=== PATIENT | male | born 1960 | race Caucasian/White ===

== ENCOUNTER 2020-04-07 12:48 | Emergency (ER) | payer OTHER, SELFPAY ==
[2020-04-07 12:55] VITALS: BP 102/68; PULSE 72; RESP 14; TEMP 36.7; O2SAT 100; BMI 25.8
--- NOTE | 2020-04-07 13:23 | DI.US.S_ITS ---
PROCEDURE: US PERIPH VENOUS UP EXTREM LT INDICATIONS: redness, swelling, hx ca TECHNIQUE: Real-time imaging, as well as color and pulse Doppler interrogation, was performed of the left upper extremity deep veins from the inferior neck to the antecubital fossa. COMPARISON: None. FINDINGS: The internal jugular vein, visualized portions of the subclavian vein, axillary, and brachial veins are free of intraluminal thrombus. Where physically possible, the veins are normally compressible. Color and pulse Doppler demonstrate normal intraluminal flow, with expected phasicity and pulsatility. Additional scanning of the cephalic and basilic veins of the superficial system demonstrate normal compressibility, without thrombus. IMPRESSION: No evidence of left upper extremity deep vein thrombosis. Dictated by: Zachariah Benjamin M.D. on 04/07/2020 at 13:14 Approved by: Zachariah Benjamin M.D. on 04/07/2020 at 13:14
--- NOTE | 2020-04-07 13:45 | ED.EXTPRO ---
HPI - Extremity Problem <NICK Vinson - Last Filed: 04/07/20 20:09> General Chief complaint: Extremity Problem,Nontraumatic Stated complaint: left arm swollen Time Seen by Provider: 04/07/20 13:10 Source: patient Mode of arrival: Ambulatory Limitations: no limitations History of Present Illness HPI Narrative: The patient is a 59-year-old male former smoker with history of breast cancer who presents with a chief complaint of a swollen left arm. He states it has been swollen for the past several weeks after he lifted weights to heavy at the gym. He has history of lymph node removal on his left side after his breast cancer course. He noticed a few days ago that there was redness extending up his left arm. He states he thinks that is related to the lymph node removal in the fact that he worked too hard at the gym, but wants to make sure it is not related to infection or a blood clot. He denies any fevers nausea vomiting or diarrhea. Denies any chest pain or shortness of breath. He has not taken anything to feel better. Related Data Previous Rx's Medication Instructions Recorded cyclobenzaprine 10 mg PO TID PRN #14 tab 04/07/20 ketorolac 10 mg PO TID PRN #15 tab 04/07/20 Allergies Allergy/AdvReac Type Severity Reaction Status Date / Time No Known Drug Allergies Allergy Verified 04/07/20 13:01 Review of Systems <NICK Vinson - Last Filed: 04/07/20 20:09> Review of Systems Narrative: GENERAL: Denies chills, fatigue, malaise, fever, sweats. HEENT: Denies sinus pain, ear pain, sore throat, difficulty swallowing, dizziness. RESPIRATORY: Denies dyspnea, cough, wheezing, hemoptysis, sputum. CARDIOVASCULAR: Denies chest pain, palpitations, orthopnea, edema, GASTROINTESTINAL: Denies nausea, vomiting, abdominal pain, diarrhea, constipation, melena. : Denies dysuria, frequency, incontinence, hematuria, urinary retention. MUSCULOSKELETAL: See HPI SKIN: See HPI NEUROLOGIC: Denies weakness, headache, numbness, change in speech, confusion, seizures, incoordination. PSYCHIATRIC: No concerning psychosocial issues. 12 point review of systems is negative except for those stated above Patient History <NICK Vinson - Last Filed: 04/07/20 20:09> Social History Smoking Status: Unknown if ever smoked Smoking Status: Unknown if ever smoked alcohol intake frequency: holidays/special occasions only Substance Use Type: does not use Exam <Zayra Nathalie [employer] - Last Filed: 04/07/20 20:09> Narrative Exam Narrative: GENERAL: This is a well-nourished, well-developed patient, in no acute distress HEAD: Atraumatic. Normocephalic. No temporal or scalp tenderness. EYES: Pupils equal round and reactive. Extraocular motions intact. No scleral icterus. No injection or drainage. ENT: Nose without bleeding, purulent drainage or septal hematoma. Throat without erythema, tonsillar hypertrophy or exudate. Uvula midline. Airway patent. NECK: Trachea midline. No JVD or lymphadenopathy. Supple, nontender, no meningeal signs. CARDIOVASCULAR: Regular rate and rhythm RESPIRATORY: Clear to auscultation. Breath sounds equal bilaterally. No wheezes, rales, or rhonchi. No cough. No increased respiratory effort. GASTROINTESTINAL: Abdomen soft, non-tender, nondistended. No hepato-splenomegaly, or palpable masses. No guarding. EXTREMITIES: Edema noted left upper arm. Able to fully flex and extend left wrist and elbow. Positive left radial pulse. Skin exam as noted. Slight pain to palpation left bicep before pain medications. Arm is soft throughout. Capillary refill less than 2 seconds all fingers left hand. BACK: Nontender without deformity or crepitance. No flank tenderness. NEURO: AOx3. SKIN: Diffuse, nonspecific erythema noted on left upper arm. Postoperative scars, well healed left pack. Initial Vital Signs Initial Vital Signs: Vital Signs Temperature 98.0 F 04/07/20 12:55 Pulse Rate 72 04/07/20 12:55 Respiratory Rate 04/07/20 12:55 Blood Pressure 102/68 04/07/20 12:55 Pulse Oximetry 100 04/07/20 12:55 <Ari Lopez MD - Last Filed: 04/08/20 07:57> Initial Vital Signs Initial Vital Signs: Vital Signs Temperature 98.0 F 04/07/20 12:55 Pulse Rate 72 04/07/20 12:55 Respiratory Rate 14 04/07/20 12:55 Blood Pressure 102/68 04/07/20 12:55 Pulse Oximetry 100 04/07/20 12:55 Scores <ROBYN Vinson - Last Filed: 04/07/20 20:09> GCS [place] coma scale eye opening: Spontaneous Oneil coma scale verbal response: Orientated Oneil coma scale motor response: Obey commands Oneil coma scale total score: 15 Course <ROBYN Vinson - Last Filed: 04/07/20 20:09> Orders Ordered: Discontinued Medications Ketorolac Tromethamine (Toradol) 60 mg IM NOW ONE Stop: 04/07/20 14:53 Last Admin: 04/07/20 15:13 Dose: 60 mg Documented by: KELY Vital Signs Vital signs: Vital Signs - 8 hr 04/07/20 12:55 04/07/20 16:37 Temperature 98.0 F Pulse Rate 72 Respiratory Rate 14 Blood Pressure 102/68 104/80 Pulse Oximetry 100 <Ari Lopez MD - Last Filed: 04/08/20 07:57> Orders Ordered: Discontinued Medications Ketorolac Tromethamine (Toradol) 60 mg IM NOW ONE Stop: 04/07/20 14:53 Last Admin: 04/07/20 15:13 Dose: 60 mg Documented by: KELY Vital Signs Vital signs: Vital Signs - 8 hr 04/07/20 12:55 04/07/20 16:37 Temperature 98.0 F Pulse Rate 72 Respiratory Rate 14 Blood Pressure 102/68 104/80 Pulse Oximetry 100 MDM - Extremity (Nontraumatic) <ROBYN Vinson - Last Filed: 04/07/20 20:09> Lab Data Attestation: I reviewed the patient's lab results. Result diagrams: 04/07/20 14:02 04/07/20 14:02 Labs: Lab Results 04/07/20 04/07/20 04/07/20 Range/Units 14:02 14:02 14:02 WBC 10.2 (4.5-11.0) X10^3/uL RBC 3.84 L (4.5-5.9) X10^6/uL Hgb 11.9 L (13.5-17.5) g/dL Hct 34.6 L (41-53) % MCV 89.9 (80-100) fL MCH 31.0 (26-34) PG MCHC 34.5 (30-36) % RDW 13.2 (11.6-14.8) % Plt Count 197 (150-400) X10^3/uL Neut % (Auto) 83.1 H (50-75) % Lymph % (Auto) 9.4 L (25-40) % [place] % (Auto) 5.5 (3-14) % Eos % (Auto) 1.8 L (2-4) % Baso % (Auto) 0.2 (0-2) % Neut # (Auto) 8500 H (4522-4470) /uL Lymph # (Auto) 1000 L (9952-0155) /uL [place] # (Auto) 600 (0-900) /uL Eos # (Auto) 200 (0-450) /uL Baso # (Auto) 0 (0-100) /uL PT (10.1-12.7) SECONDS INR (0.9-1.3) APTT (26.4-36.2) SECONDS Sodium 139 (137-145) mmol/L Potassium 3.5 (3.4-5.1) mmol/L Chloride 103 (98-107) mmol/L Carbon Dioxide 30 (22-32) mmol/L BUN 14 (9-20) mg/dL Creatinine 0.86 (0.66-1.25) mg/dL Estimated GFR > 60.0 (>60) mL/min BUN/Creatinine Ratio 16.3 (6-22) Glucose 94 (70-100) mg/dL Calcium 9.0 (8.4-10.2) mg/dL Magnesium (1.6-2.3) mg/dL Total Bilirubin 0.8 (0.2-1.3) mg/dL AST 32 (17-59) IU/L ALT 22 (<50) IU/L Alkaline Phosphatase 45 (38-126) U/L Total Creatine Kinase 210 H (55-170) U/L Total Protein 7.3 (6.3-8.2) g/dL Albumin 4.2 (3.5-5.0) g/dL Globulin 3.1 (1.7-4.1) g/dL Albumin/Globulin Ratio 1.4 (1.0-2.8) Procalcitonin 0.05 (<0.5) ng/mL 04/07/20 04/07/20 Range/Units 14:02 14:02 WBC (4.5-11.0) X10^3/uL RBC (4.5-5.9) X10^6/uL Hgb (13.5-17.5) g/dL Hct (41-53) % MCV (80-100) fL MCH (26-34) PG MCHC (30-36) % RDW (11.6-14.8) % Plt Count (150-400) X10^3/uL Neut % (Auto) (50-75) % Lymph % (Auto) (25-40) % [place] % (Auto) (3-14) % Eos % (Auto) (2-4) % Baso % (Auto) (0-2) % Neut # (Auto) (2697-7256) /uL Lymph # (Auto) (4535-8647) /uL [place] # (Auto) (0-900) /uL Eos # (Auto) (0-450) /uL Baso # (Auto) (0-100) /uL PT 13.8 H (10.1-12.7) SECONDS INR 1.2 (0.9-1.3) APTT 31 (26.4-36.2) SECONDS Sodium (137-145) mmol/L Potassium (3.4-5.1) mmol/L Chloride (98-107) mmol/L Carbon Dioxide (22-32) mmol/L BUN (9-20) mg/dL Creatinine (0.66-1.25) mg/dL Estimated GFR (>60) mL/min BUN/Creatinine Ratio (6-22) Glucose (70-100) mg/dL Calcium (8.4-10.2) mg/dL Magnesium 2.0 (1.6-2.3) mg/dL Total Bilirubin (0.2-1.3) mg/dL AST (17-59) IU/L ALT (<50) IU/L Alkaline Phosphatase (38-126) U/L Total Creatine Kinase (55-170) U/L Total Protein (6.3-8.2) g/dL Albumin (3.5-5.0) g/dL Globulin (1.7-4.1) g/dL Albumin/Globulin Ratio (1.0-2.8) Procalcitonin (<0.5) ng/mL Imaging Data US - DVT: Radiologist's Impression: [facility] [place] [id number] Ultrasound Report Signed Patient: Deny Andino HMR#: [id number] : 1Acct:[id number] Age/Sex: 59 / MDate of Service: 04/07/20 Loc: ED Accession Number: [id number] Procedure: US periph venous up extrem lt Ordering Provider: Zayra Zelaya [employer] PROCEDURE: US PERIPH VENOUS UP EXTREM LT INDICATIONS: redness, swelling, hx ca TECHNIQUE: Real-time imaging, as well as color and pulse Doppler interrogation, was performed of the left upper extremity deep veins from the inferior neck to the antecubital fossa. COMPARISON: None. FINDINGS: The internal jugular vein, visualized portions of the subclavian vein, axillary, and brachial veins are free of intraluminal thrombus. Where physically possible, the veins are normally compressible. Color and pulse Doppler demonstrate normal intraluminal flow, with expected phasicity and pulsatility. Additional scanning of the cephalic and basilic veins of the superficial system demonstrate normal compressibility, without thrombus. IMPRESSION: No evidence of left upper extremity deep vein thrombosis. Dictated by: Zachariah Benjamin M.D. on 04/07/2020 at 13:14 Approved by: Zachariah Benjamin M.D. on 04/07/2020 at 13:14 [facility] Narrative Medical decision making narrative: The patient is a 51-year-old male who presents with a chief complaint of left arm swelling. His picture is complicated by the fact that he has had a mastectomy and lymph node removal. Given his swelling, DVT ultrasound was taken to help rule out DVT. This came back negative. Lab work was taken to find no leukocytosis, negative procalcitonin or indications of infection. The patient's exam indicates a soft arm, with slight edema that improved throughout his stay in the emergency department. Compartment syndrome was consider, though the patient has good pulses, good capillary refill, and his arm is soft to palpation. This edema that he has likely due to lymphedema, which has recovered with some rest in the emergency department. I encouraged rest ice compression elevation. The patient felt much improved with a single injection of Toradol, so I did give him a prescription with specific instructions to not take it with Aleve or any other NSAIDs. Also offered prescription of Flexeril, but was unable to try that prior to patient discharge as the patient was driving home. Discussed at length coming back to the emergency department for any acute concerns, follow-up with primary care provider. Patient has no questions or concerns upon discharge and states understanding of return precautions as well as follow-up care. <Ari Lopez MD - Last Filed: 04/08/20 07:57> Lab Data Labs: Lab Results 04/07/20 04/07/20 04/07/20 Range/Units 14:02 14:02 14:02 WBC 10.2 (4.5-11.0) X10^3/uL RBC 3.84 L (4.5-5.9) X10^6/uL Hgb 11.9 L (13.5-17.5) g/dL Hct 34.6 L (41-53) % MCV 89.9 (80-100) fL MCH 31.0 (26-34) PG MCHC 34.5 (30-36) % RDW 13.2 (11.6-14.8) % Plt Count 197 (150-400) X10^3/uL Neut % (Auto) 83.1 H (50-75) % Lymph % (Auto) 9.4 L (25-40) % [place] % (Auto) 5.5 (3-14) % Eos % (Auto) 1.8 L (2-4) % Baso % (Auto) 0.2 (0-2) % Neut # (Auto) 8500 H (1971-8562) /uL Lymph # (Auto) 1000 L (4371-6403) /uL [place] # (Auto) 600 (0-900) /uL Eos # (Auto) 200 (0-450) /uL Baso # (Auto) 0 (0-100) /uL PT (10.1-12.7) SECONDS INR (0.9-1.3) APTT (26.4-36.2) SECONDS Sodium 139 (137-145) mmol/L Potassium 3.5 (3.4-5.1) mmol/L Chloride 103 (98-107) mmol/L Carbon Dioxide 30 (22-32) mmol/L BUN 14 (9-20) mg/dL Creatinine 0.86 (0.66-1.25) mg/dL Estimated GFR > 60.0 (>60) mL/min BUN/Creatinine Ratio 16.3 (6-22) Glucose 94 (70-100) mg/dL Calcium 9.0 (8.4-10.2) mg/dL Magnesium (1.6-2.3) mg/dL Total Bilirubin 0.8 (0.2-1.3) mg/dL AST 32 (17-59) IU/L ALT 22 (<50) IU/L Alkaline Phosphatase 45 (38-126) U/L Total Creatine Kinase 210 H (55-170) U/L Total Protein 7.3 (6.3-8.2) g/dL Albumin 4.2 (3.5-5.0) g/dL Globulin 3.1 (1.7-4.1) g/dL Albumin/Globulin Ratio 1.4 (1.0-2.8) Procalcitonin 0.05 (<0.5) ng/mL 04/07/20 04/07/20 Range/Units 14:02 14:02 WBC (4.5-11.0) X10^3/uL RBC (4.5-5.9) X10^6/uL Hgb (13.5-17.5) g/dL Hct (41-53) % MCV (80-100) fL MCH (26-34) PG MCHC (30-36) % RDW (11.6-14.8) % Plt Count (150-400) X10^3/uL Neut % (Auto) (50-75) % Lymph % (Auto) (25-40) % [place] % (Auto) (3-14) % Eos % (Auto) (2-4) % Baso % (Auto) (0-2) % Neut # (Auto) (6652-0669) /uL Lymph # (Auto) (2954-6485) /uL [place] # (Auto) (0-900) /uL Eos # (Auto) (0-450) /uL Baso # (Auto) (0-100) /uL PT 13.8 H (10.1-12.7) SECONDS INR 1.2 (0.9-1.3) APTT 31 (26.4-36.2) SECONDS Sodium (137-145) mmol/L Potassium (3.4-5.1) mmol/L Chloride (98-107) mmol/L Carbon Dioxide (22-32) mmol/L BUN (9-20) mg/dL Creatinine (0.66-1.25) mg/dL Estimated GFR (>60) mL/min BUN/Creatinine Ratio (6-22) Glucose (70-100) mg/dL Calcium (8.4-10.2) mg/dL Magnesium 2.0 (1.6-2.3) mg/dL Total Bilirubin (0.2-1.3) mg/dL AST (17-59) IU/L ALT (<50) IU/L Alkaline Phosphatase (38-126) U/L Total Creatine Kinase (55-170) U/L Total Protein (6.3-8.2) g/dL Albumin (3.5-5.0) g/dL Globulin (1.7-4.1) g/dL Albumin/Globulin Ratio (1.0-2.8) Procalcitonin (<0.5) ng/mL Discharge Plan Departure Patient Disposition: Home Clinical Impression: Left arm swelling Discharge Date/Time: 04/07/20 16:38 Instructions: How To Perform RICE (Rest, Ice, Compress, Elevate), DI for Arm Pain Activity Restrictions/Additional Instructions: Thank you for trusting us with your care today. I wish you a speedy recovery. As discussed, I would like you to rest and elevate your arm. It is possible that the swelling is related to your previous surgery. Your ultrasound showed no evidence of a blood clot, your blood work came back well. I sent 2 prescriptions to [facility]. I have given you a prescription of Ketoralac or Toradol. This is an NSAID. Do not combine it with other NSAIDs such as Aleve or ibuprofen. I suggest taking it with some food, as it can irritate your stomach. I also sent in a prescription of a muscle relaxer. Please do not combine this with anything sedating such as alcohol. Please do not drive or operate heavy machinery on this. As discussed, please come back to the emergency department for any acute concerns such as decreased circulation, swelling exam Prescriptions: New ketorolac 10 mg tablet 10 mg PO TID PRN (Reason: pain) Qty: 15 RF: 0 cyclobenzaprine 10 mg tablet 10 mg PO TID PRN (Reason: muscle spasm) Qty: 14 RF: 0 <Ari Lopez MD - Last Filed: 04/08/20 07:57> Cosign ED Attending Cosignature Attestation: I was immediately available in the department for consultation. This documentation has been reviewed and I agree with assessment and plan. Supervised by Ari Lopez MD
[2020-04-07 14:12] LABS: Add Manual Diff / Slide Review NO; Basophils Absolute Auto 0 /uL (0-100); Basophils Percent Auto 0.2 % (0-2); Eosinophils Absolute Auto 200 /uL (0-450); Eosinophils Percent Auto 1.8 % (2-4); Hematocrit 34.6 % (41-53); Hemoglobin 11.9 g/dL (13.5-17.5); Lymphocytes Absolute Auto 1000 /uL (1100-4500); Lymphocytes Percent Auto 9.4 % (25-40); Mean Corpuscular HGB Conc 34.5 % (30-36); Mean Corpuscular Volume 89.9 fL (80-100); Monocytes Absolute Auto 600 /uL (0-900); Monocytes Percent Auto 5.5 % (3-14); Neutrophils Absolute Auto 8500 /uL (1500-7000); Neutrophils Percent Auto 83.1 % (50-75); Platelet Count 197 X10^3/uL (150-400); Red Blood Cell Count 3.84 X10^6/uL (4.5-5.9); Red Cell Distribution Width 13.2 % (11.6-14.8); White Blood Cell Count 10.2 X10^3/uL (4.5-11.0)
[2020-04-07 14:19] LABS: INR 1.2 (0.9-1.3); Prothrombin Time 13.8 SECONDS (10.1-12.7)
[2020-04-07 14:21] LABS: PTT Partial Thromboplastin Tim 31 SECONDS (26.4-36.2)
[2020-04-07 14:24] LABS: Alanine Aminotransferase 22 IU/L (<50); Albumin 4.2 g/dL (3.5-5.0); Albumin Globulin Ratio 1.4 (1.0-2.8); Alkaline Phosphatase 45 U/L (38-126); Aspartate Aminotransferase 32 IU/L (17-59); BUN Creatinine Ratio 16.3 (6-22); Bilirubin Total 0.8 mg/dL (0.2-1.3); Blood Urea Nitrogen 14 mg/dL (9-20); Carbon Dioxide 30 mmol/L (22-32); Chloride 103 mmol/L (98-107); Creatine Kinase 210 U/L (55-170); Estimated Glomerular Filt Rate > 60.0 mL/min (>60); Globulin 3.1 g/dL (1.7-4.1); Glucose 94 mg/dL (70-100); HEMOLYSIS < 15 (0-50); Potassium 3.5 mmol/L (3.4-5.1); Sodium 139 mmol/L (137-145); Total Protein 7.3 g/dL (6.3-8.2)
[2020-04-07 14:41] LABS: Procalcitonin 0.05 ng/mL (<0.5)
[2020-04-07] MEDS: KETOROLAC 60 MG/2 ML VIAL IM (15:13)
[2020-04-07 16:37] VITALS: BP 104/80
== END 2020-04-07 16:38 | disposition home or self-care (01) ==
PROVIDERS: Emergency Provider Nurse Practitioner Family
DX: R22.32 Localized swelling, mass and lump, left upper limb (principal)
CPT/HCPCS: 80053; 82550; 83735; 84145; 85025; 85610; 85730; 93971; 96372; 99282; 99284; J1885